=== PATIENT | female | born 1990 | race African-American/Black ===

== ENCOUNTER 2018-02-14 19:55 | Emergency (ER) | payer SELFPAY ==
[2018-02-14 19:55] VITALS: BP 141/95; PULSE 123; RESP 20; TEMP 37.8; O2SAT 92; BMI 47.5
--- NOTE | 2018-02-14 20:11 | ED.VISSUMM ---
- ER Visit Summary Date of Service: 02/14/18 Chief Complaint: Cough, shortness of breath History of Present Illness: The patient is a 27 F with history of asthma presents to the emergency department with cough and shortness of breath. Patient states she has been having symptoms for the past 3 days. She states she went to an outside hospital 2 days ago. She was diagnosed with a viral bronchitis. She states she was placed on 20 mg prednisone daily. She states she is not feel like she is getting any better. She has been using her breathing treatments with increased frequency with little relief. She does describe fevers, chills, myalgias. She has not had productive sputum, but feels like there is something stuck and just cannot get it up. She denies any chest pain. She denies orthopnea. The patient does have history of prior ARDS from influenza. She states she does not feel nearly as sick as she did at that time. Physical Examination: Vital signs reviewed General: Well-nourished, well-developed Head: Normocephalic, atraumatic Eyes: Pupils equal and reactive, extraocular muscles intact Neck, supple, no lymphadenopathy Heart: Regular rate and rhythm Respiratory: No distress, wheezing throughout all lung santiago Abdomen: Soft, nontender, nondistended, no peritoneal signs Back: Nontender Extremities: Nontender, no edema, no cords Skin: Normal color no rash Neuro: Alert and oriented, no focal or lateralizing deficits Test Results: [] Emergency Department Course and Treatment: The patient does have wheezing in all lung santiago. IV was established. She was given fluids, Toradol, and Solu-Medrol. With nebulized treatments, her aeration is improved. She had resolution of her tachypnea. She had no hypoxia. Her labs are unremarkable. Her chest x-ray does not show focal infiltrate. With the patient's persistent fever and productive sputum, I am going to cover her with azithromycin especially given underlying history of lung disease. I do feel that this patient is safe for outpatient therapy. She is comfortable with this plan of care. Her influenza is negative. She will be discharged home. Treatment Plan: [] Disposition: Discharge Impression:. Bronchitis with bronchospasm This note was generated with LLamas[employer] software. It may contain incorrect words, spelling, and punctuation that were not noted in review of the chart prior to signing ED Disposition - Plan for ED Patient: Chief Complaint: Shortness of Breath Instructions: ED Upper Resp Infec Abx Tx Prescriptions: Azithromycin [Zithromax] 250 mg PO DAILY #4 tab Benzonatate [Tessalon Perle] 200 mg PO TID PRN PRN #20 cap PRN Reason: Cough Referrals: Piotr Woodward MD [STAFF PHYSICIAN] -
[2018-02-14 20:13] VITALS: O2SAT 96
--- NOTE | 2018-02-14 20:17 | EKG12_ITS ---
Test Reason : SOB Blood Pressure : / mmHG Vent. Rate : 117 BPM Atrial Rate : 117 BPM P-R Int : 158 ms QRS Dur : 078 ms QT Int : 328 ms P-R-T Axes : 065 048 059 degrees QTc Int : 457 ms Sinus tachycardia Otherwise normal ECG Confirmed by LEIGH ESPINOSA, ERNESTO ([id number]), business editor MARYAN SCOTT ([id number]) on 02/18/2018 2:30:41 PM Referred By: RAMEZ Confirmed By:ERNESTO ABRAHAM MD
[2018-02-14 20:22] VITALS: PULSE 117; RESP 20
[2018-02-14] MEDS: Albuterol 2.5 MG/3 ML VIAL.NEB. INHALATION ×2 (20:22)
[2018-02-14] MEDS: Ipratropium/Albuterol Sulfate 3 ML AMPUL.NEB INHALATION (20:22)
[2018-02-14] MEDS: 0.9% Normal Saline 1,000 ML 999 ML IV (20:24)
[2018-02-14] MEDS: MethylPREDNISolone 125 MG/2 ML Vial IV (20:24)
[2018-02-14 20:31] LABS: Absolute Lymphocyte Count 1.59 X10^3/ul (0.83-4.51); Absolute Neutrophil Count 7.6 X10^3/uL (2.0-7.7); Basophil# 0.02 X10^3/uL; Basophil% 0.2 % (0-1); Eosinophil# 0.01 X10^3/uL; Eosinophils% 0.1 % (0-5); Hematocrit 42.2 % (37-47); Hemoglobin 14.1 g/dl (12.0-15.0); Lymphocyte # 1.59 X10^3/ul (4.0); Lymphocyte % 16.6 % (19-41); Mean Corp Hgb Conc 33.4 g/gl (32-36); Mean Corpuscular Hgb 30.9 pg (27.0-32.0); Mean Corpuscular Volume 92.3 fL (81-99); Mean Platelet Vol. 9.9 fl (6.2-12.0); Monocyte# 0.36 X10^3/uL; Monocyte% 3.8 % (0-10); Neutrophil # 7.57 X10^3/uL (2.7-7.7); Neutrophil % 79.2 % (47-70); Platelet Count 336 K/mm3 (150-450); RBC Distribution Width CV 13.6 % (11.6-14.6); RBC Distribution Width SD 45.3 fl (35.1-43.9); Red Blood Count 4.57 M/mm3 (4.2-5.4); White Blood Count 9.6 K/mm3 (4.4-11.0)
[2018-02-14 20:32] LABS: POSITIVE COUNT NO; POSITIVE DIFFERENTIAL NO; POSITIVE MORPHOLOGY NO
--- NOTE | 2018-02-14 20:35 | RAD_ITS ---
STUDY: X-RAY CHEST REASON FOR EXAM: Female, 27 years old. Shortness of breath, fever. TECHNIQUE: PA and lateral views of the chest. COMPARISON: 28 mar 2017 FINDINGS: The lungs are clear and expanded. There is no demonstrated pleural abnormality. Normal size heart. Normal mediastinum and ariadna. Normal visualized pulmonary arteries. Normal visualized aortic arch and descending thoracic aorta. Normal visualized thoracic spine. Normal visualized ribs, clavicles, and shoulders. There is no demonstrated abnormality of the visualized soft tissue structures of the upper abdomen. RAD/Chest PA and Lateral IMPRESSION: No evidence of acute cardiopulmonary process. Electronically Signed: Javon Bueno DO at 22:02 EDT , Service support ,
[2018-02-14 20:46] LABS: Anion Gap 8 (5-15); BUN 12 mg/dL (7-18); Calcium,Total 8.9 mg/dL (8.5-10.1); Chloride 106 mmol/L (98-107); Creatinine, Serum 0.92 mg/dL (0.55-1.02); EST Glomerular Filtration Rate 77 mL/min (>60); Est Glom Filt Rate - Afr Amer 93 mL/min (>60); Glucose 120 mg/dL (74-106); Potassium 3.9 mmol/L (3.5-5.1); Sodium Level 141 mmol/L (136-145)
[2018-02-14 22:01] VITALS: BP 134/105; PULSE 114; PULSE 115; RESP 21; O2SAT 93
[2018-02-14] MEDS: Azithromycin 250 MG Tablet 500 MG PO (22:03)
== END 2018-02-14 22:15 | disposition home or self-care (01) ==
PROVIDERS: Emergency Provider Emergency Medicine
DX: J40 Bronchitis, not specified as acute or chronic (principal); J98.01 Acute bronchospasm; J45.909 Unspecified asthma, uncomplicated; E66.9 Obesity, unspecified; Z87.09 Personal history of other diseases of the respiratory system; Z72.0 Tobacco use
CPT/HCPCS: 71046; 80048; 85025; 87804; 93005; 94640; 96361; 96374; 99285; J7030; A4216

== ENCOUNTER 2018-03-13 16:48 | Emergency (ER) | payer SELFPAY ==
[2018-03-13 16:49] VITALS: BP 150/94; PULSE 115; RESP 22; TEMP 38.8; O2SAT 97; BMI 49.0
[2018-03-13 16:51] VITALS: O2SAT 97
--- NOTE | 2018-03-13 17:02 | RAD_ITS ---
XR Chest 2 Views INDICATION: fever, cough COMPARISON: None FINDINGS: Heart size and pulmonary vascularity are within normal limits. The lungs are clear without evidence of airspace consolidation or pleural effusion. The osseous structures are grossly unremarkable. RAD/Chest PA and Lateral IMPRESSION: No radiographic evidence of acute intrathoracic disease. at 1737 Reported and signed by: Elena Underwood MD Electronically Signed: Elena Underwood MD at 17:35 EDT Tel , Service support ,
--- NOTE | 2018-03-13 17:15 | ED.VISSUMM ---
- ER Visit Summary Date of Service: 03/13/18 Chief Complaint: Cough, fever History of Present Illness: The patient is a 27 F who has 3 days of cough, fever. It started as nasal congestion and then she had shortness of breath with a cough. She states that Tylenol helps with her fevers but the fever comes back after a couple of hours. She has been using her nebulizer at home but it does not help. She does have a history of asthma. No sick contacts at home. Physical Examination: Vital signs reviewed. HEENT exam unremarkable. Heart is regular rate and rhythm without murmurs. Lungs have diffuse rhonchorous breath sounds bilaterally. Abdomen is soft and nontender. Extremities reveal no edema. Skin exam normal. Neurologic exam normal. Test Results: Chest x-ray reveals no acute findings Emergency Department Course and Treatment: Patient was given a DuoNeb treatment and feels better. Due to her fever I will send her home with a azithromycin and prednisone. She will continue her aerosols will follow up with her PCP Treatment Plan: [] Disposition: Discharge Impression: URI This note was generated with [employer] dictation software. It may contain incorrect words, spelling, and punctuation that were not noted in review of the chart prior to signing ED Disposition - Plan for ED Patient: Chief Complaint: Cough Referrals: Care Physician,No Primary [Primary Care Provider] -
[2018-03-13 17:28] VITALS: PULSE 119; RESP 20
[2018-03-13] MEDS: Ipratropium/Albuterol Sulfate 3 ML AMPUL.NEB INHALATION (17:28)
--- NOTE | 2018-03-13 17:46 | ED.DEP ---
ED Disposition - Plan for ED Patient: Disposition: Home or Assisted Living Chief Complaint: Cough Instructions: ED Upper Resp Infec Abx Tx Prescriptions: Azithromycin [Zithromax] 250 mg PO DAILY #4 tab Prednisone [Deltasone] 40 mg PO DAILY #8 tab Referrals: Care Physician,No Primary [Primary Care Provider] -
[2018-03-13] MEDS: predniSONE 20 MG Tablet 40 MG PO (17:51)
[2018-03-13] MEDS: Azithromycin 250 MG Tablet 500 MG PO (17:51)
[2018-03-13 17:53] VITALS: BP 142/87; PULSE 108; RESP 20; O2SAT 100
== END 2018-03-13 17:54 | disposition home or self-care (01) ==
PROVIDERS: Emergency Provider Emergency Medicine
DX: J06.9 Acute upper respiratory infection, unspecified (principal); J45.909 Unspecified asthma, uncomplicated; Z72.0 Tobacco use
CPT/HCPCS: 71046; 94640; 99283

== ENCOUNTER 2018-03-14 20:31 | Emergency (ER) | payer SELFPAY ==
[2018-03-14 20:33] VITALS: BP 125/77; PULSE 94; RESP 20; TEMP 36.9; O2SAT 91; BMI 53.4
[2018-03-14 20:57] VITALS: O2SAT 90
--- NOTE | 2018-03-14 21:02 | ED.DCSUM_ITS ---
- ER Visit Summary Date of Service: 03/14/18 Chief Complaint: I cannot breathe History of Present Illness: The patient is a 27 F with history of asthma and respiratory failure secondary to age 1 and 1 who returns because of shortness of breath, nonproductive cough and no improvement since yesterday. She is able to nebulized albuterol at home. She states there is no improvement. She was prescribed azithromycin and prednisone. She denies history of PE DVT. Denies leg pain, swelling discoloration. She does report change in voice. She does report congestion. Her cough is nonproductive. She is a smoker. Physical Examination: Vital signs are acceptable. Her pulse ox is 91%. Her pulse ox with activity is 92%. BMI is 54. HEENT exam is remarkable for nasal congestion. TMs are normal. Posterior pharynx without erythema or exudate. Trachea midline with no stridor. Lungs are clear to auscultation with good move air bilaterally. Heart is regular without murmur, gallop or rub. Abdomen is soft nontender. She has no dermatologic lesions noted. Test Results: None are indicated Emergency Department Course and Treatment: Amatory pulse ox 90%. Patient's been informed since she is a smoker she may cough up to 4 weeks. She was told she has an upper respiratory infection and may be ill for an additional 10-14 days. Treatment Plan: Continue using albuterol, and to take prednisone and azithromycin as prescribed Disposition: Discharged to home Impression: 1. History of asthma 2. Recent diagnosis upper respiratory infection This note was generated with ShareNotes.[employer] dictation software. It may contain incorrect words, spelling, and punctuation that were not noted in review of the chart prior to signing ED Disposition - Plan for ED Patient: Disposition: Home or Assisted Living Chief Complaint: Shortness of Breath Instructions: ED Upper Resp Infec Abx Tx Referrals: Care Physician,No Primary [Primary Care Provider] - Doctor,Your [STAFF PHYSICIAN] - Additional Instructions: Because you are smoker you may have a cough up to 4 weeks. You may be ill for an additional 10-14 days.
[2018-03-14 21:06] VITALS: O2SAT 92
[2018-03-14 21:08] VITALS: BP 155/95; PULSE 94; RESP 18; O2SAT 94
--- NOTE | 2018-03-15 14:19 | CM.ED ---
ED CALLBACK: Follow-up phone call placed to patient. Patient's mother, Chloe, answered the phone and states she's at the grocery and not near [facility]. Chloe states that the patient feels about the same as yesterday. I inquired as to whether the patient has a PCP. Chloe states her daughter just moved back to [place] and does not have active SLOANE or insurance at this time and this is why she has no PCP. I recommended that the patient see if she qualifies for Medicaid now, as she has in the past. Chloe states she will tell Polly to call me back.
== END 2018-03-14 21:14 | disposition home or self-care (01) ==
PROVIDERS: Emergency Provider Emergency Medicine
DX: J45.909 Unspecified asthma, uncomplicated (principal); J06.9 Acute upper respiratory infection, unspecified; Z87.09 Personal history of other diseases of the respiratory system; F17.200 Nicotine dependence, unspecified, uncomplicated
CPT/HCPCS: 99282

== ENCOUNTER → 2018-05-01 17:50 | Outpatient (CLI) | payer MEDICAID, SELFPAY ==
[2018-05-09 16:17] LABS: HPV Reflexed? NOT INDICATED
== END ==
PROVIDERS: Visit Provider Obstetrics & Gynecology
DX: Z12.4 Encounter for screening for malignant neoplasm of cervix (principal); Z12.72 Encounter for screening for malignant neoplasm of vagina
CPT/HCPCS: 88175; G0145

== ENCOUNTER 2018-05-15 11:01 | Emergency (ER) | payer MEDICAID, SELFPAY ==
[2018-05-15 11:02] VITALS: BP 132/66; PULSE 93; RESP 16; TEMP 35.9; O2SAT 98; BMI 52.1
--- NOTE | 2018-05-15 11:15 | ED.VISSUMM ---
- ER Visit Summary Date of Service: 05/15/18 Chief Complaint: [Rash] History of Present Illness: The patient is a 27 F [presents the emergency department the rash started a week ago. Patient denies any fever. Patient thinks she was exposed to poison ankush may be a month ago but not since. She denies any new soaps, detergents, or other direct contact to her skin. Patient states the rash is pruritic. Patient used a anti-itch cream to it one time but she thought that may have made it worse so she stopped using it.] Physical Examination: [HEENT-PERRLA, EOMI. Cranial nerves II through XII grossly intact. TMs clear. Mucous membranes moist. No adenopathy. Cardiovascular-regular rate and rhythm without murmur or ectopy Lungs-clear to auscultation, chest wall stable without crepitus or subcu emphysema Abdomen-normoactive bowel sounds, soft, nontender, no rebound or rigidity, no peritoneal signs. Extremities-intact ?4, normal range of motion, normal pulses, atraumatic]. Left knee-patient has a erythematous slightly raised rash about the left knee and distal anterior thigh. There are some hair follicles that are slightly raised and erythematous raising the possibility of early cellulitis or folliculitis. There are some linearity to the lesions raising possibility for a rhus dermatitis or contact dermatitis Test Results: [None indicated] Emergency Department Course and Treatment: [Patient was started on Keflex and prednisone] Treatment Plan: [Treat with Keflex and prednisone] Disposition: [Discharged home in stable condition] Impression: [Contact dermatitis Cellulitis] This note was generated with Luminescent dictation software. It may contain incorrect words, spelling, and punctuation that were not noted in review of the chart prior to signing ED Disposition - Plan for ED Patient: Chief Complaint: Rash Referrals: Care Physician,No Primary [Primary Care Provider] -
--- NOTE | 2018-05-15 11:17 | ED.DEP ---
ED Disposition - Plan for ED Patient: Chief Complaint: Rash Instructions: Discharge Instructions for Cellulitis, ED Dermatitis Contact Prescriptions: Cephalexin [Keflex] 500 mg PO Q6 #40 cap Prednisone [Deltasone] 20 mg PO BID #10 tab Referrals: Care Physician,No Primary [Primary Care Provider] - Piotr Woodward MD [STAFF PHYSICIAN] - 5-7 Days
[2018-05-15] MEDS: predniSONE 20 MG Tablet 40 MG PO (11:22)
[2018-05-15] MEDS: Cephalexin 250 MG Capsule 500 MG PO (11:22)
[2018-05-15 11:24] VITALS: BP 128/76; PULSE 82; RESP 16; O2SAT 98
== END 2018-05-15 12:28 | disposition home or self-care (01) ==
LOC: ED 12:21
PROVIDERS: Emergency Provider Emergency Medicine
DX: L25.9 Unspecified contact dermatitis, unspecified cause (principal); L03.116 Cellulitis of left lower limb; B96.89 Other specified bacterial agents as the cause of diseases classified elsewhere; Z72.0 Tobacco use
CPT/HCPCS: 99283

== ENCOUNTER 2018-07-24 23:51 | Emergency (ER) | payer MEDICAID, SELFPAY ==
[2018-07-24 23:52] VITALS: BP 108/75; PULSE 99; RESP 17; TEMP 36.6; O2SAT 99; BMI 56.3
--- NOTE | 2018-07-25 00:10 | ED.VISSUMM ---
- ER Visit Summary Date of Service: 07/25/18 Chief Complaint: Suprapubic pain History of Present Illness: The patient is a 27 F presents to the emergency department suprapubic pain. The patient is currently undergoing fertility treatments. She is on Clomid and progesterone therapy. She states that tonight, at about 1130, she had sudden onset fullness in her suprapubic area. She felt as if she had to urinate, but could not. She describes some pain in her lower quadrants. She denies any fevers or chills. She denies any nausea or vomiting. She states she did take a test today which was negative. The patient does have a history of prior ovarian cyst, but is never had rupture. She has had prior laparoscopic surgery for endometriosis. She follows with Dr. Sanchez. Physical Examination: Vital signs reviewed General: Well-nourished, well-developed Head: Normocephalic, atraumatic Eyes: Pupils equal and reactive, extraocular muscles intact Neck, supple, no lymphadenopathy Heart: Regular rate and rhythm Respiratory: No distress, clear bilaterally Abdomen: Soft, nontender, nondistended, no peritoneal signs Back: Nontender Extremities: Nontender, no edema, no cords Skin: Normal color no rash Neuro: Alert and oriented, no focal or lateralizing deficits Test Results: [] Emergency Department Course and Treatment: The patient presents with sudden onset suprapubic pain. Her exam is relatively benign. She has no rebound or guarding. She does state she has had some mild pain with urination feels like she cannot empty. Her urine does show leukocytes and epithelial cells, but no significant bacteria. I do feel that she may have the start of urinary tract infection. Her serum was negative. Without any intervention, her pain had totally resolved. I do not suspect torsion. I do not suspect other dangerous process. The patient is resting comfortably. I am going to treat her with Macrobid. At this time, I feel that she is safe for outpatient therapy. Treatment Plan: [] Disposition: Discharge Impression: 1. Suprapubic pain This note was generated with [employer] dictation software. It may contain incorrect words, spelling, and punctuation that were not noted in review of the chart prior to signing ED Disposition - Plan for ED Patient: Chief Complaint: Abd Pain Instructions: ED Pelvic Pain [facility]O Prescriptions: Nitrofurantoin Macrocrystals [Macrobid] 100 mg PO Q12 #10 cap Referrals: Care Physician,No Primary [NON-STAFF] -
[2018-07-25] MEDS: 0.9% Normal Saline 1,000 ML 1000 ML IV (00:21)
[2018-07-25 00:24] LABS: Bacteria 0 SEEN /hpf (None Seen); Mucous, Urine 0 SEEN /hpf (<or=2+); Red Blood Cells-Urine 0 SEEN /hpf (0-5); White Blood Cells 0 SEEN /hpf (0-5)
[2018-07-25 00:25] LABS: Color, Urine Yellow (Yellow); Glucose, Dipstick Normal (Normal); Ketone-Dipstick Negative (Negative); Leukocyte Esterase-Dipstick 25 /ul (Negative); Nitrite-Dipstick Negative (Negative); Occult Blood-Urine Negative /ul (Negative); Protein-Dipstick Negative (Negative); Specific Gravity, Urine 1.025 (1.002-1.030); Urine Bilirubin Dipstick Negative (Negative); Urine Clarity Sl. Cloudy (Clear); Urine Urobilinogen Normal (Normal)
[2018-07-25 00:29] LABS: Absolute Lymphocyte Count 4.11 X10^3/ul (0.83-4.51); Basophil# 0.05 X10^3/uL; Basophil% 0.5 % (0-1); Eosinophil# 0.55 X10^3/uL; Eosinophils% 5.8 % (0-5); Hematocrit 38.4 % (37-47); Hemoglobin 12.7 g/dl (12.0-15.0); Lymphocyte # 4.11 X10^3/ul (4.0); Lymphocyte % 43.3 % (19-41); Mean Corp Hgb Conc 33.1 g/gl (32-36); Mean Corpuscular Volume 90.6 fL (81-99); Mean Platelet Vol. 9.6 fl (6.2-12.0); Monocyte# 0.75 X10^3/uL; Monocyte% 7.9 % (0-10); Neutrophil # 4.01 X10^3/uL (2.7-7.7); Neutrophil % 42.3 % (47-70); Platelet Count 377 K/mm3 (150-450); RBC Distribution Width CV 12.9 % (11.6-14.6); RBC Distribution Width SD 41.9 fl (35.1-43.9); Red Blood Count 4.24 M/mm3 (4.2-5.4); White Blood Count 9.5 K/mm3 (4.4-11.0)
[2018-07-25 00:32] LABS: Differential Indicated SCAN CRITERIA MET; POSITIVE COUNT NO; POSITIVE DIFFERENTIAL NO; POSITIVE MORPHOLOGY YES
[2018-07-25 00:33] LABS: Squamous Epithelial Cells - UA > 100 SEEN /hpf (5-10)
[2018-07-25 00:46] LABS: Anion Gap 7 (5-15); BUN 15 mg/dL (7-18); BUN/Creat Ratio 16.8 RATIO (10-20); Calcium,Total 8.7 mg/dL (8.5-10.1); Chloride 107 mmol/L (98-107); Creatinine, Serum 0.89 mg/dL (0.55-1.02); EST Glomerular Filtration Rate 79 mL/min (>60); Est Glom Filt Rate - Afr Amer 96 mL/min (>60); Glucose 111 mg/dL (74-106); Sodium Level 139 mmol/L (136-145)
[2018-07-25 01:01] LABS: Pregnancy, Serum, hCG Quali. NEGATIVE Negative (0-9 Nonpreg)
[2018-07-25] MEDS: Nitrofurantoin Macrocrystals 100 MG Capsule PO (01:35)
[2018-07-25 01:37] VITALS: BP 135/77; PULSE 85; RESP 16; O2SAT 97
== END 2018-07-25 01:39 | disposition home or self-care (01) ==
PROVIDERS: Emergency Provider Emergency Medicine; Family Provider Internal Medicine; PCP Internal Medicine
DX: R10.30 Lower abdominal pain, unspecified (principal); R30.0 Dysuria; E66.9 Obesity, unspecified
CPT/HCPCS: 80048; 81001; 84703; 85025; 96360; 99284; J7030; A4216

== ENCOUNTER → 2018-08-21 16:59 | Outpatient (CLI) | payer MEDICAID, SELFPAY ==
[2018-08-21 19:00] LABS: Progesterone Level 0.26 ng/mL (See Comment)
== END ==
PROVIDERS: Visit Provider Obstetrics & Gynecology
DX: N92.6 Irregular menstruation, unspecified (principal)
CPT/HCPCS: 36415; 84144

== ENCOUNTER 2018-09-23 17:54 | Emergency (ER) | payer MEDICAID, SELFPAY ==
[2018-09-23 17:55] VITALS: BP 128/79; PULSE 84; RESP 16; TEMP 36.2; O2SAT 95; BMI 55.0
[2018-09-23 18:11] VITALS: O2SAT 95
--- NOTE | 2018-09-23 18:16 | ED.DCSUM_ITS ---
- ER Visit Summary Date of Service: 09/23/18 Chief Complaint: Cough, dyspnea History of Present Illness: The patient is a 28 F 2-day history increased upper respiratory illness. They started with sinus congestion, using saline rinse with improvement. Today cough wheeze. History of asthma. Does have inhalers at home. Saw [facility] stat care started on prednisone. States feels symptoms worsening. He tried inhalers still slight wheeze. No fevers. No chest pains. 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 Quit smoking currently on Chantix. Physical Examination: General: Alert and oriented ?3, no acute distress HEENT: Normocephalic, atraumatic. Moist mucosa membranes Neck: supple, nontender. Cardiovascular: Regular rate and rhythm, no murmurs Respiratory: No distress, mild expiratory wheeze bilateral lower, no rales Abdomen: Soft, nontender, nondistended Extremities: Nontender, no edema, pulses intact ?4 Neuro: no focal neurological deficits. Test Results: [] Emergency Department Course and Treatment: Expiratory wheezing, status post DuoNeb. Vitals stable. Reevaluation improved wheezing and symptoms. She does have a nebulizer at home, she requests medications were her nebulizer she does have a rescue inhaler. Discussed finishing her steroid dose started by stat care. Discussed viral syndrome with asthma exacerbation. Signs and symptoms d iscussed to return. Treatment Plan: [] Disposition: Discharge Impression: 1. Asthma exacerbation 2. Upper respiratory infection This note was generated with [employer] dictation software. It may contain incorrect words, spelling, and punctuation that were not noted in review of the chart prior to signing ED Disposition - Plan for ED Patient: Disposition: Home or Assisted Living Chief Complaint: Cough Diagnosis: Asthma exacerbation, Upper respiratory infection Instructions: ED Upper Resp Infec No Abx Tx, Understanding Asthma Triggers Prescriptions: Albuterol Aerosols [Ventolin Aerosols] 2.5 mg INHALATION Q4H PRN #25 vial Referrals: Piotr Woodward MD [Primary Care Provider] - 3-5 Days Additional Instructions: Finish your steroids written by stat care.
[2018-09-23 18:20] VITALS: PULSE 88; RESP 16
[2018-09-23] MEDS: Ipratropium/Albuterol Sulfate 3 ML AMPUL.NEB INHALATION (18:21)
--- NOTE | 2018-09-23 18:59 | ED.RN ---
DISCHARGE INSTRUCTIONS GIVEN TO AND REVIEWED WITH PATIENT, PATIENT DENIES QUESTIONS OR CONCERNS AND VOICES UNDERSTANDING OF DISCHARGE INSTRUCTIONS. PT AMBULATES OUT OF ROOM WITHOUT DIFFICULTY.
== END 2018-09-23 19:00 | disposition home or self-care (01) ==
PROVIDERS: Emergency Provider Emergency Medicine; Family Provider Internal Medicine; PCP Internal Medicine
DX: J45.901 Unspecified asthma with (acute) exacerbation (principal); J06.9 Acute upper respiratory infection, unspecified; Z87.891 Personal history of nicotine dependence
CPT/HCPCS: 94640; 99282

== ENCOUNTER 2019-10-20 18:41 | Emergency (ER) | payer MEDICAID, SELFPAY ==
[2019-10-20 18:42] VITALS: BP 110/80; PULSE 85; RESP 20; TEMP 36.2; O2SAT 94; BMI 51.6
--- NOTE | 2019-10-20 19:35 | EKG12_ITS ---
Test Reason : SOB Blood Pressure : / mmHG Vent. Rate : 079 BPM Atrial Rate : 079 BPM P-R Int : 152 ms QRS Dur : 076 ms QT Int : 362 ms P-R-T Axes : 062 029 042 degrees QTc Int : 415 ms Normal sinus rhythm Normal ECG Confirmed by LEIGH ESPINOSA, ERNESTO ([id number]), order editor MARYAN SCOTT ([id number]) on 10/22/2019 11:48:09 AM Referred By: KIEL Confirmed By:ERNESTO ABRAHAM MD
[2019-10-20 19:57] VITALS: PULSE 84; RESP 16; O2SAT 96
[2019-10-20] MEDS: Albuterol 2.5 MG/3 ML VIAL.NEB. INHALATION ×3 (19:57→21:38)
[2019-10-20] MEDS: Ipratropium/Albuterol Sulfate 3 ML AMPUL.NEB INHALATION (19:57)
[2019-10-20] MEDS: MethylPREDNISolone 125 MG/2 ML Vial IV (19:57)
[2019-10-20] MEDS: 0.9% Normal Saline 1,000 ML 999 ML IV (20:02)
--- NOTE | 2019-10-20 20:08 | RAD_ITS ---
STUDY: X-RAY CHEST REASON FOR EXAM: Female, 29 years old. Short of breath TECHNIQUE: PA and lateral COMPARISON: March 13, 2018 FINDINGS: The lungs are clear and expanded. There is no demonstrated pleural abnormality. Normal size heart. Normal mediastinum and ariadna. Normal visualized pulmonary arteries. Normal visualized aortic arch and descending thoracic aorta. Normal visualized thoracic spine. Normal visualized ribs, clavicles, and shoulders. There is no demonstrated abnormality of the visualized soft tissue structures of the upper abdomen. RAD/Chest PA and Lateral IMPRESSION: Normal x-ray examination of the chest. Electronically Signed: Moi Staples MD at 20:25 EST , Service support ,
[2019-10-20 20:40] LABS: Internal QC Validated? YES +Cl - CLEAR BKGD; Pregnancy, Serum, hCG Quali. NEGATIVE Negative
[2019-10-20 21:38] VITALS: PULSE 102; RESP 16
[2019-10-20 22:06] VITALS: PULSE 104; RESP 16; O2SAT 96
--- NOTE | 2019-10-20 22:10 | ED.VISSUMM ---
- ER Visit Summary Date of Service: 10/20/19 Chief Complaint: Shortness of breath History of Present Illness: The patient is a [address] Woodward. She has a history of asthma. She reports she has shortness of breath began yesterday. Severe at worst mild currently. Is worsened by exertion. Is relieved by rest and albuterol. Reports that she has a cough is productive of white sputum. She denies any blood. No fever chills. No personal family history history of DVT. No recent travel. No ankle swelling or calf pain. She reports this is similar to her asthma exacerbations, but this is worse than usual. Physical Examination: Vitals: Stable. Afebrile. General: Well-nourished and well-developed. Head: Normocephalic atraumatic. Neck: Supple, no lymphadenopathy. No JVD. Nontender. Cardiovascular: Regular rate and rhythm. No murmurs. Respiratory: No respiratory distress. Moderate wheezing bilaterally with decreased air movement Abdominal: Soft, nontender, nondistended, normal bowel sounds. No guarding, rebound, or peritoneal signs. Back: Nontender. Extremities: Nontender, no edema. Skin: Normal color, no rash. Neurologic: Alert and oriented ?3. Cranial nerves II through XII are intact. Normal strength and sensation. Psych: Normal affect. Test Results: Chest x-ray is normal. EKG is sinus at 79 with no acute changes. Patency test is negative. Emergency Department Course and Treatment: Patient was given albuterol Atrovent aerosols. She was given Solu-Medrol IV. She was given prednisone p.o. She is resting more comfortably. She still has slight wheezing, but reports that her symptoms are much improved. Treatment Plan: Patient be discharged with prednisone instructed to continue to use her nebulizer and MDI. Follow with her primary care physician 1 to 2 days if not improving. Return to the emergency department for any worsening symptoms. Disposition: To home in improved and stable condition. Impression: 1. Asthma exacerbation. This note was generated with [employer] software. It may contain incorrect words, spelling, and punctuation that were not noted in review of the chart prior to signing ED Disposition - Plan for ED Patient: Disposition: Home or Assisted Living Instructions: ASTHMA, Acute (Adult) Prescriptions: Prednisone [Deltasone] 60 mg PO DAILY #15 tab Prescription Printed Referrals: Piotr Woodward MD [Primary Care Provider] - 1-2 Days if not improving
[2019-10-20 22:16] VITALS: O2SAT 96
[2019-10-20] MEDS: predniSONE 20 MG Tablet 60 MG PO (22:16)
== END 2019-10-20 22:19 | disposition home or self-care (01) ==
PROVIDERS: Emergency Provider Emergency Medicine; Family Provider Internal Medicine; PCP Internal Medicine
DX: J45.901 Unspecified asthma with (acute) exacerbation (principal); Z87.891 Personal history of nicotine dependence
CPT/HCPCS: 71046; 84703; 87804; 93005; 94640; 96361; 96374; 99251; 99285; J7030; A4216; G0463

== ENCOUNTER 2020-08-21 22:18 | Emergency (ER) | payer MEDICAID, SELFPAY ==
[2020-05-17 12:39] VITALS: BMI 51.6
[2020-08-21 22:18] VITALS: BP 134/82; PULSE 86; RESP 18; TEMP 36.2; O2SAT 95; BMI 54.6
[2020-08-21 22:23] VITALS: BP 134/82; PULSE 86; RESP 18; TEMP 36.2; O2SAT 95
--- NOTE | 2020-08-21 23:03 | ED.VIS.GEN ---
History of Present Illness Chief Complaint: Shortness of Breath Informant: Patient Narrative: 30-year-old female with history of asthma presents today with shortness of breath and a cough. Patient states that she was seen yesterday at urgent care and diagnosed with sinusitis and otitis media on the left. He is treated with doxycycline because she is penicillin allergic. Patient states that her shortness of breath feels worse. Her oxygen has been normal. She did not have shortness of breath yesterday. She states that 4 times a year she gets this. She states that usually her oxygen looks fine however she still feels short of breath. She does not have any chest pain or palpitations. Patient is a smoker. She denies fever, nausea vomiting diarrhea, myalgias but she does have loss of taste and smell. Past Medical History - Allergies and Home Meds Allergies/Adverse Reactions: Allergies Penicillins Allergy (Verified 07/24/18 23:51) Hives AVACADO Adverse Reaction (Uncoded 07/24/18 23:51) Vomiting GUACAMOLE Adverse Reaction (Uncoded 07/24/18 23:51) Vomiting Primary Care Physician: Piotr Woodward MD [Primary Care Provider] - Prior records reviewed: Yes Past Medical History: - - Asthma Surgical History: no surgical history, noncontributory Lives: Alone Smoking Status: Former smoker Alcohol: None Drugs: None Review of Systems General: Denies: Chills, Fever Eyes: Denies: Visual changes - bilaterally, Diplopia ENT: Reports: Left ear pain, Rhinorrhea, - - Loss of taste and smell Cardiovascular: Denies: Chest pain, Palpitations Respiratory: Reports: Dyspnea, Cough Gastrointestinal: Denies: Abdominal pain, Nausea, Vomiting Genitourinary: Denies: Dysuria, Hematuria Musculoskeletal: Denies: Myalgias, Arthralgias Skin: Denies: Rash, Abscess Neurological: Denies: Headache, Weakness Physical Exam Vital Signs/Narrative: Vital Signs Temp Pulse Resp BP Pulse Ox 08/21/20 22:23 97.1 F L 86 18 134/82 H 95 08/21/20 22:18 97.1 F L 86 18 134/82 H 95 Inital Vital Signs reviewed: Yes General: Obese, No Acute Distress Head: Normocephalic, Atraumatic Eyes: Perrl, EOMI ENT: Nasal congestion, - - Left TM is erythematous with air-fluid levels. Right TM is within normal limits. Both external auditory canals are normal. Cardiovascular: Regular rate, Tachycardia Respiratory: No distress, Wheezing. Negative for: Retractions, Chest tenderness Extremities: Nontender, No edema Skin: Normal color, No rash. Negative for: Cyanosis Neurological: Alert, Oriented x3 Psychological: Normal affect, Normal Mood Diagnostic/Tx/Re-eval - Medical Decision Making Patient presents with left ear pain and nasal congestion as well as wheezing. She is already been treated with doxycycline for her otitis media/sinusitis. On examination her vital signs are stable and she is afebrile. She is not hypoxic. Her lungs are slightly wheezy. She was given breathing treatments and prednisone in the ED. She will be given a burst of prednisone for home as well. She has home nebulizer solution as well as an albuterol inhaler however she states her home nebulizer is broken. I did provide her a prescription for new home nebulizer. We did discuss the possibility of exposure to COVID?19 however she states that she does not want to be tested. I did recommend that she still quarantine. I recommend smoking cessation. Patient given strict return precautions. She is stable for discharge at this time. Impression: 1. Left otitis media 2. Asthma exacerbation 3. URI likely viral ED Disposition - Plan for ED Patient: Instructions: ED Upper Resp Infec No Abx Tx, Otitis Media (Middle-Ear Infection) in Adults, Understanding Asthma Referrals: Piotr Woodward MD [Primary Care Provider] -
[2020-08-21] MEDS: predniSONE 20 MG Tablet 60 MG PO (23:16)
[2020-08-21] MEDS: Albuterol 2.5 MG/3 ML VIAL.NEB. INHALATION (23:27)
[2020-08-21] MEDS: Ipratropium/Albuterol Sulfate 3 ML AMPUL.NEB INHALATION (23:27)
[2020-08-21 23:30] VITALS: PULSE 85; RESP 18
[2020-08-22 01:03] VITALS: RESP 16; O2SAT 96
== END 2020-08-22 01:04 | disposition home or self-care (01) ==
PROVIDERS: Emergency Provider Student in an Organized Health Care Education/Training Program; PCP Internal Medicine
DX: H66.92 Otitis media, unspecified, left ear (principal); J45.901 Unspecified asthma with (acute) exacerbation; J06.9 Acute upper respiratory infection, unspecified; Z87.891 Personal history of nicotine dependence
CPT/HCPCS: 94640; 99283

== ENCOUNTER 2021-11-08 07:29 | Emergency (ER) | payer MEDICAID, SELFPAY ==
[2021-11-08 07:30] VITALS: BP 139/88; PULSE 103; RESP 16; TEMP 36.6; O2SAT 96; BMI 56.5
[2021-11-08 07:32] VITALS: BP 139/88; PULSE 103; RESP 16; TEMP 36.6; O2SAT 96
[2021-11-08 07:42] VITALS: O2SAT 96
--- NOTE | 2021-11-08 07:46 | ED.VIS.DYS ---
HPI History of Present Illness Chief Complaint: Shortness of Breath Informant: patient Narrative Narrative: 31-year-old female presenting to the emergency room with dyspnea. Patient notes she has a history of asthma. She developed a sinus infection approximately 1 week ago and notes that yesterday she developed shortness of breath. She notes cough. She used to be on Advair but has not seen her doctor recently so she only has her albuterol inhaler of which only has 3 puffs left on it. She notes no fever. [facility] Medical History Asthma Home Medications albuterol sulfate [Ventolin HFA] 1 - 2 puff INHALATION Q4H PRN PRN #1 inhaler 03/28/17 [Rx Last Taken Unknown] prednisone 60 mg PO DAILY #15 tab 10/20/19 [Rx Last Taken Unknown] albuterol sulfate [Ventolin HFA] 2 puff INHALATION Q4H PRN PRN #1 inhaler 11/08/21 [Rx Last Taken Unknown] prednisone 60 mg PO DAILY #12 tablet 11/08/21 [Rx Last Taken Unknown] Allergy/AdvReac Type Severity Reaction Status Date / Time Penicillins Allergy Hives Verified 11/08/21 07:32 [place]AC[place]O AdvReac Vomiting Uncoded 11/08/21 07:32 [place] AdvReac Vomiting Uncoded 11/08/21 07:32 Surgical History no surgical history Social History (Updated 11/08/21 @ 07:[address] Emeka King DO) current gender identity: female Smoking Status: Current every day smoker tobacco type: cigarettes ROS ROS ED Constitutional Constitutional ED: Denies chills or weight loss Eyes Eyes: Denies change in vision or diplopia ENT ENT ED: Reports rhinorrhea; Denies ear pain or sore throat Cardiovascular Cardiovascular: Denies chest pain, orthopnea, palpitations or racing heartbeat Respiratory/Chest Respiratory/Chest: Reports cough, dyspnea and dyspnea on exertion; Denies orthopnea Gastrointestinal Gastrointestinal: Denies abdominal pain, diarrhea, nausea or vomiting Genitourinary Genitourinary ED: Denies dysuria, hematuria or urinary frequency Musculoskeletal Musculoskeletal: Denies arthralgias or myalgias Integumentary Denies abscess or rash Neurologic Neurologic: Denies headache(s) or weakness Psychiatric Psychiatric: Denies anxiety, depression, suicidal ideation or suicidal thoughts Endocrine Endocrinology: Denies polydipsia, polyphagia or polyuria Allergic/Immunologic Allergic/Immunologic ED: Denies mouth swelling, tongue swelling or urticaria EXAM Physical Exam Const Vital Signs: 11/08/21 07:30 11/08/21 07:32 11/08/21 07:42 Temperature 97.9 F 97.9 F Temperature Source Temporal Temporal Pulse Rate 103 H 103 H Respiratory Rate 16 16 Respiratory Effort Short of Breath Labored Respiratory Pattern Blood Pressure 139/88 H 139/88 H Blood Pressure Mean 105 105 Pulse Ox 96 96 Oxygen Delivery Method Room Air Room Air Room Air 11/08/21 07:57 Temperature Temperature Source Pulse Rate 91 Respiratory Rate 15 Respiratory Effort Respiratory Pattern Normal Blood Pressure Blood Pressure Mean Pulse Ox Oxygen Delivery Method Positive well nourished and well developed General Appearance ED: well developed HEENT Reports normocephalic, head/scalp atraumatic, TM's clear and moist mucous membranes atraumatic Tympanic Membrane ED: Yes TM's clear Eyes PERRL and EOMs intact bilaterally Neck no lymphadenopathy, supple and no JVD Resp normal respiratory effort Auscultation: wheezes expiratory wheezes Cardio regular rate, regular rhythm and no murmurs GI normal to inspection, nondistended, normoactive bowel sounds and non-tender Palpation: soft Back/Spine no CVA tenderness and normal ROM Extremity normal to inspection General Extremety ED: Negative for edema General Extremity: Negative for edema Neuro oriented x3 and CN's II-XII intact bilaterally Sensorium / Orientation: alert Motor Exam: strength 5/5 throughout Psych mental status grossly normal Mood & Affect: Negative for depressed or tearful Skin no rashes or lesions noted and no wounds MDM MDM MDM Narrative Medical decision making narrative: Patient received breathing treatments and prednisone. Repeat examination finds her to be feeling significantly better. On lung auscultation she has better air movement still with some expiratory wheezes. Patient will be started with prednisone and new albuterol MDI. She is to follow-up with her primary care doctor to get back on her daily maintenance therapy and discussion of a new aerosol machine which she says hers is quite old and not working. Discharge Plan Triage Chief Complaint: Shortness of Breath ED Provider: Emeka King Dx/Rx/DC Orders Clinical Impression: Acute asthma exacerbation Instructions: ED Asthma, Acute (Adult) Prescriptions: New prednisone 20 MG tablet 60 mg PO DAILY Qty: 12 RF: 0 albuterol sulfate [Ventolin HFA] 1 INHALER inhaler 2 puff inhalation Q4H PRN PRN (Reason: Wheezing) Qty: 1 RF: 0 No Action albuterol sulfate [Ventolin HFA] 1 INHALER inhaler 1 - 2 puff inhalation Q4H PRN PRN (Reason: Wheezing) Qty: 1 RF: 0 prednisone 20 MG tablet 60 mg PO DAILY Qty: 15 RF: 0 Primary Care Provider: Piotr Woodward Referrals: Piotr Woodward MD [Primary Care Provider] - As soon as possible (Please discuss a nebulizer and return to your daily asthma treatment) Disposition Disposition: Home, Self Care
[2021-11-08] MEDS: Albuterol 2.5 MG/3 ML VIAL.NEB. INHALATION (07:54)
[2021-11-08] MEDS: Ipratropium/Albuterol Sulfate 3 ML AMPUL.NEB INHALATION (07:54)
[2021-11-08 07:57] VITALS: PULSE 91; RESP 15
[2021-11-08] MEDS: predniSONE 20 MG Tablet 60 MG PO (08:03)
== END 2021-11-08 09:18 | disposition home or self-care (01) ==
PROVIDERS: Emergency Provider Emergency Medicine; PCP Internal Medicine
DX: J45.901 Unspecified asthma with (acute) exacerbation (principal); Z79.52 Long term (current) use of systemic steroids; Z79.899 Other long term (current) drug therapy; F17.210 Nicotine dependence, cigarettes, uncomplicated
CPT/HCPCS: 94640; 99283

== ENCOUNTER 2022-08-27 11:35 | Emergency (ER) | payer MEDICAID, SELFPAY ==
[2022-08-27 11:36] VITALS: BP 147/101; PULSE 83; RESP 16; TEMP 36.4; O2SAT 96; BMI 56.2
--- NOTE | 2022-08-27 11:47 | ED.VIS.DENTA ---
HPI <GLO Jones - Last Filed: 08/27/22 11:52> History of Present Illness Chief Complaint: Dental Narrative Narrative: 32-year-old female presents with pain in her left lower premolar. Its bothered her for a while but been worse over the last week. Her dentist prescribed clindamycin which she has only taken 2 doses of so far. They plan to do a root canal in 2 days. She is here with increased pain in that area. Denies fever chills or difficulty swallowing or breathing. PFSH <GLO Jones - Last Filed: 08/27/22 11:52> PFSH Medical History Asthma Home Medications albuterol sulfate 90 mcg/actuation aerosol inhaler (Ventolin HFA) 1 - 2 puff inhalation Q4H PRN PRN Wheezing ##1 03/28/17 [Rx Last Taken Unknown] prednisone 20 mg tablet 60 mg PO DAILY #15 tabs 10/20/19 [Rx Last Taken Unknown] albuterol sulfate 90 mcg/actuation aerosol inhaler (Ventolin HFA) 2 puff inhalation Q4H PRN PRN Wheezing ##1 11/08/21 [Rx Last Taken Unknown] prednisone 20 mg tablet 60 mg PO DAILY #12 TABLETS 11/08/21 [Rx Last Taken Unknown] ibuprofen 800 mg tablet 800 mg PO Q8H 7 days #21 tabs 08/27/22 [Rx Last Taken Unknown] oxycodone-acetaminophen 5 mg-325 mg tablet (Percocet) 1 tab PO Q6H PRN pain 3 days #12 tabs 08/27/22 [Rx Last Taken Unknown] Allergy/AdvReac Type Severity Reaction Status Date / Time Penicillins Allergy Hives Verified 08/27/22 11:35 AVACADO AdvReac Vomiting Uncoded 08/27/22 11:35 GU[place]AMOLE AdvReac Vomiting Uncoded 08/27/22 11:35 Surgical History no surgical history Social History (Updated 11/08/21 @ 07:[address] Emeka King DO) Smoking Status: Current every day smoker tobacco type: cigarettes ROS <GLO Jones - Last Filed: 08/27/22 11:52> ROS ED ROS Narrative Constitutional: Negative for fever, chills, malaise. Eyes: Negative for visual change. ENT: Positive for dental pain. CVS: Negative for palpitations, chest pain, syncope. Respiratory: Negative for shortness of breath, cough. GI: Negative for abdominal pain, nausea, vomiting. : Negative for dysuria, hematuria or frequency. Neuro: Negative for headache, motor/sensory dysfunction. Skin: Negative for rash, abscess, or wound. Musc: Negative for joint pain, swelling, trauma. Heme: Negative for easy bruising, bleeding, lymphadenopathy. EXAM <GLO Jones - Last Filed: 08/27/22 11:52> Physical Exam Narrative Exam Narrative: CONST: Patient sitting in no acute distress. EYES: Normal inspection. ENT: Left lower premolar #20 is tender to palpation. No periapical abscess, sublingual space is soft. Airway patent with no trismus or tongue elevation. NECK: Normal inspection. No masses or lymphadenopathy, trachea midline. RESP: No respiratory distress, CTAB. CVS: Regular rate and rhythm, no murmur, no gallop. SKIN: Color normal, no rash, warm, dry, intact. EXTREMITIES: Normal appearance, no pedal edema. NEURO: Oriented x4. PSYCH: Normal affect. Const Vital Signs: 08/27/22 11:36 Temperature 97.6 F L Temperature Source Temporal Pulse Rate 83 Respiratory Rate 16 Blood Pressure 147/101 H Blood Pressure Mean 116 Pulse Ox 96 Oxygen Delivery Method Room Air <Dr. Duke Verduzco MD - Last Filed: 08/27/22 12:04> Physical Exam Const Vital Signs: 08/27/22 11:36 Temperature 97.6 F L Temperature Source Temporal Pulse Rate 83 Respiratory Rate 16 Blood Pressure 147/101 H Blood Pressure Mean 116 Pulse Ox 96 Oxygen Delivery Method Room Air MDM <GLO Jones - Last Filed: 08/27/22 11:52> [facility] Narrative Medical decision making narrative: Patient has dental pain. She has tenderness over left lower premolar #20. There is no associated abscess or signs of deep space infection. Airway is patent. She is handling oral secretions appropriately. She has no fever or systemic symptoms. She is already on clindamycin and has taken 2 doses. I prescribed [place] for better pain control and she will keep her scheduled dentist appointment. She was discharged in stable condition. <Dr. Duke Verduzco MD - Last Filed: 08/27/22 12:04> MDM MDM Narrative Medical decision making narrative: Patient has dental pain. She has tenderness over left lower premolar #20. There is no associated abscess or signs of deep space infection. Airway is patent. She is handling oral secretions appropriately. She has no fever or systemic symptoms. She is already on clindamycin and has taken 2 doses. I prescribed [place] for better pain control and she will keep her scheduled dentist appointment. She was discharged in stable condition. Seen and evaluated independently and in conjunction with physician certified physician assistant. Agree with notes above unless documented otherwise. On exam, no trismus, no objective signs of infection, just a painful carried tooth that she is going to see dentistry for in 2 days, will prescribe some analgesics. Discharge Plan Triage Chief Complaint: Dental ED Midlevel Provider: Isaura Schrader ED Provider: Duke Verduzco Dx/Rx/DC Orders Clinical Impression: Pain due to dental caries Instructions: ED Abscess Antibiotic Treatment Only Prescriptions: New ibuprofen 800 mg tablet 800 mg PO Q8H 7 Days Qty: 21 0RF oxycodone-acetaminophen [Percocet] 5-325 mg tablet 1 tab PO Q6H PRN (Reason: pain) 3 Days Qty: 12 0RF No Action albuterol sulfate [Ventolin HFA] 1 INHALER inhaler 1 - 2 puff inhalation Q4H PRN PRN (Reason: Wheezing) Qty: 1 0RF prednisone 20 MG tablet 60 mg PO DAILY Qty: 15 0RF Rx Instructions: With food prednisone 20 MG tablet 60 mg PO DAILY Qty: 12 0RF Rx Instructions: Begin 09 November 2021 albuterol sulfate [Ventolin HFA] 1 INHALER inhaler 2 puff inhalation Q4H PRN PRN (Reason: Wheezing) Qty: 1 0RF Rx Instructions: dispense with a spacer Primary Care Provider: Piotr Woodward Referrals: Piotr Woodward MD [Primary Care Provider] - Dentist,Your [STAFF PHYSICIAN] - Keep A[facility]a appointment Disposition Disposition: Home, Self Care Discharge Date/Time: 08/27/22 12:01
== END 2022-08-27 12:01 | disposition home or self-care (01) ==
LOC: ED 12:00
PROVIDERS: Emergency Provider Emergency Medicine; PCP Internal Medicine; Visit Provider Emergency Medicine
DX: K02.9 Dental caries, unspecified (principal); K08.89 Other specified disorders of teeth and supporting structures; F17.210 Nicotine dependence, cigarettes, uncomplicated
CPT/HCPCS: 99282

== ENCOUNTER 2022-12-05 22:43 | Emergency (ER) | payer MEDICAID, SELFPAY ==
[2022-12-05 22:44] VITALS: BP 188/142; PULSE 110; RESP 17; TEMP 36.9; O2SAT 97; BMI 77.3
[2022-12-05 22:50] VITALS: BP 131/95
--- NOTE | 2022-12-05 23:35 | EDS_ITS ---
HPI History of Present Illness Chief Complaint: Substance Abuse Narrative Narrative: Patient is a 32-year-old female with past medical history of morbid obesity who presents to the ER with unintentional overdose. Patient typically does THC Gummies in the evening. She states that she typically does 14 mg. She states this evening for some reason she took more than she normally does and took approximately 185 mg of the gummies. She denies any other ingestion. She states this was done out of a want to feel good and not a attempted suicide. Reportedly patient did this roughly 1 hour prior to arrival. After taking a large amount she began to feel anxious and nauseous and secondary to this EMS was called. [facility] Medical History Asthma Home Medications albuterol sulfate 90 mcg/actuation aerosol inhaler (Ventolin HFA) 1 - 2 puff inhalation Q4H PRN PRN Wheezing ##1 03/28/17 [Rx Last Taken Unknown] prednisone 20 mg tablet 60 mg PO DAILY #15 tabs 10/20/19 [Rx Last Taken Unknown] albuterol sulfate 90 mcg/actuation aerosol inhaler (Ventolin HFA) 2 puff inhalation Q4H PRN PRN Wheezing ##1 11/08/21 [Rx Last Taken Unknown] prednisone 20 mg tablet 60 mg PO DAILY #12 TABLETS 11/08/21 [Rx Last Taken Unknown] ibuprofen 800 mg tablet 800 mg PO Q8H 7 days #21 tabs 08/27/22 [Rx Last Taken Unknown] oxycodone-acetaminophen 5 mg-325 mg tablet (Percocet) 1 tab PO Q6H PRN pain 3 days #12 tabs 08/27/22 [Rx Last Taken Unknown] Allergy/AdvReac Type Severity Reaction Status Date / Time Penicillins Allergy Hives Verified 12/05/22 22:48 avocado AdvReac Other Verified 12/05/22 22:48 Surgical History no surgical history Social History (Updated 11/08/21 @ 07:[address] Emeka King DO) Smoking Status: Current every day smoker tobacco type: cigarettes ROS ROS ED Constitutional Constitutional ED: Denies chills or fever(s) Eyes Eyes: Denies change in vision ENT ENT ED: Denies sore throat Cardiovascular Cardiovascular: Reports racing heartbeat; Denies chest pain Respiratory/Chest Respiratory/Chest: Denies cough or dyspnea Gastrointestinal Gastrointestinal: Reports nausea and vomiting; Denies abdominal pain or diarrhea Genitourinary Genitourinary ED: Denies dysuria Musculoskeletal Musculoskeletal: Denies myalgias Integumentary Denies rash Neurologic Neurologic: Denies headache(s) Psychiatric Psychiatric: Reports anxiety; Denies suicidal ideation or suicidal thoughts Hematologic/Lymphatic Hematologic/Lymphatic: Denies easy bleeding or easy bruising EXAM Physical Exam Const Vital Signs: 12/05/22 22:44 12/05/22 22:50 12/06/22 01:19 Temperature 98.4 F Temperature Source Temporal Pulse Rate 110 H 86 Respiratory Rate 17 14 Blood Pressure 188/142 H 131/95 H 135/90 H Blood Pressure Mean 157 107 105 Pulse Ox 97 98 Oxygen Delivery Method Room Air Room Air 12/06/22 02:31 Temperature Temperature Source Pulse Rate 89 Respiratory Rate 17 Blood Pressure 132/88 H Blood Pressure Mean Pulse Ox 99 Oxygen Delivery Method Positive well nourished, well developed and obese General Appearance ED: well developed Nutritional Appearance: obese HEENT Reports moist mucous membranes Eyes EOMs intact bilaterally Eyes Narrative: Pupils are dilated and sluggish to respond consistent with THC use Neck supple Neck Narrative: No new rigidity or meningeal signs noted Resp normal respiratory effort and clear to auscultation bilaterally Cardio regular rhythm Rate: tachycardic and other Other Details: Tachycardic rate with regular rhythm GI normal to inspection, nondistended, normoactive bowel sounds, non-tender, non- distended and no masses GI Narrative: No voluntary guarding or rigidity no pulsatile mass or fluid wave Auscultation: normoactive bowel sounds Palpation: soft Extremity normal to inspection Neuro oriented x3 and CN's II-XII intact bilaterally Sensorium / Orientation: alert Psych Psych Narrative: Patient has a tearful/nervous/anxious affect without homicidal or suicidal ideation Skin no rashes or lesions noted MDM MDM MDM Narrative Medical decision making narrative: OnPatient presented to the ER hypertensive and tachycardic with emotional lability and nausea which are all symptoms consistent with THC overdose. At this time even though the vitals are elevated they are not hemodynamically unstable. She also reports this was an accidental overdose and not deliberate so there is no need for psychiatric work-up or crisis center evaluation. The patient was given 2 L of fluid Zofran and Ativan and washed in the ER for multiple hours. On reevaluation she had improvement of her vital signs and resolution of her symptoms. At this time she also reiterates that this was not a suicide attempt and therefore as symptoms have improved with treatment and she is not homicidal or suicidal there is no need for further evaluation in the ER and patient is otherwise safe for discharge Discharge Plan Triage Chief Complaint: Substance Abuse ED Provider: Mert Weldon Dx/Rx/DC Orders Clinical Impression: Tetrahydrocannabinol (THC) use disorder, mild, abuse, Accidental overdose Instructions: ED Marijuana Abuse Prescriptions: No Action albuterol sulfate [Ventolin HFA] 1 INHALER inhaler 1 - 2 puff inhalation Q4H PRN PRN (Reason: Wheezing) Qty: 1 0RF prednisone 20 MG tablet 60 mg PO DAILY Qty: 15 0RF Rx Instructions: With food prednisone 20 MG tablet 60 mg PO DAILY Qty: 12 0RF Rx Instructions: Begin 09 November 2021 albuterol sulfate [Ventolin HFA] 1 INHALER inhaler 2 puff inhalation Q4H PRN PRN (Reason: Wheezing) Qty: 1 0RF Rx Instructions: dispense with a spacer ibuprofen 800 mg tablet 800 mg PO Q8H 7 Days Qty: 21 0RF oxycodone-acetaminophen [Percocet] 5-325 mg tablet 1 tab PO Q6H PRN (Reason: pain) 3 Days Qty: 12 0RF Primary Care Provider: Piotr Woodward Referrals: Piotr Woodward MD [Primary Care Provider] - Disposition Disposition: Home, Self Care Discharge Date/Time: 12/06/22 02:36
[2022-12-05] MEDS: Ondansetron 4 MG/2 ML Vial IV (23:47)
[2022-12-05] MEDS: LORazepam 2 MG/ML Syringe 1 MG IV (23:47)
[2022-12-05] MEDS: 0.9% Normal Saline 1,000 ML 999 ML IV (23:47)
[2022-12-06] MEDS: 0.9% Normal Saline 1,000 ML 999 ML IV (00:49)
[2022-12-06 01:19] VITALS: BP 135/90; PULSE 86; RESP 14; O2SAT 98
[2022-12-06 02:31] VITALS: BP 132/88; PULSE 89; RESP 17; O2SAT 99
== END 2022-12-06 02:36 | disposition home or self-care (01) ==
PROVIDERS: Emergency Provider Emergency Medicine; PCP Internal Medicine; Visit Provider Emergency Medicine
DX: R11.0 Nausea (principal); E66.01 Morbid (severe) obesity due to excess calories; T40.711A Poisoning by cannabis, accidental (unintentional), initial encounter; F17.210 Nicotine dependence, cigarettes, uncomplicated; F12.90 Cannabis use, unspecified, uncomplicated
CPT/HCPCS: 96374; 96375; 99285; J7030; A4216; J2405

== ENCOUNTER 2023-07-30 09:17 | Emergency (ER) | payer MEDICAID, SELFPAY ==
[2023-07-30 09:17] VITALS: BP 124/93; PULSE 96; RESP 16; TEMP 36.2; O2SAT 99; BMI 55.9
--- NOTE | 2023-07-30 09:29 | CT_ITS ---
STUDY: CTA HEAD AND NECK WITH CONTRAST REASON FOR EXAM: Female, 32 years old. Headache. History of cervical pain and dizziness. RADIATION DOSAGE (If Supplied By Facility): CTDIvol = ( 27.64 ) mGy, DLP = ( 1505.64 ) mGycm TECHNIQUE: CT angiography was performed with a multi-detector CT scanner. Data acquisition was obtained from the skull base through the vertex following intravenous administration of IV 100mL [id number]-[id number]. MIP images were reconstructed from the axial data set. Post-processing of the angiographic images was performed, with multiplanar reformation and 3D reconstruction. Individualized dose optimization techniques were used for this CT. COMPARISON: Comparison is made with prior CT scan of the brain dated March 12, 2015. FINDINGS: Normal bilateral petrous carotid arteries. Normal right cavernous carotid artery with a normal supraclinoid bifurcation. Normal left cavernous carotid artery with a normal supraclinoid bifurcation. Normal right A1 segments of the anterior cerebral artery. Normal left A1 segments of the anterior cerebral artery. Normal intact anterior communicating artery (ACOM). Normal bilateral A2 segments of the anterior cerebral arteries. Normal right M1 and M2 segments of the middle cerebral arteries, with a normal M1 bifurcation. Normal left M1 and M2 segments of the middle cerebral arteries, with a normal M1 bifurcation. Normal right posterior communicating artery (PCOM). Normal left posterior communicating artery (PCOM). Normal bilateral vertebral arteries. Normal basilar artery with a normal basilar bifurcation. The visualized bilateral superior cerebellar (SCA) arteries are normal. Normal bilateral P1, P2 and visualized P3 segments of the posterior cerebral arteries. There is no demonstrated aneurysm of the [place]. There is no demonstrated abnormality of the visualized brain. AORTIC ARCH: Normal visualized aortic arch. Normal origins of the brachiocephalic, left common carotid, and left subclavian arteries. RIGHT CAROTID ARTERIES: Normal right common carotid artery (CCA). Normal right common carotid bulb. Normal origin of the right internal carotid (ICA) artery without a hemodynamically significant stenosis. Normal visualized cervical portion of the right internal carotid artery. Normal origin of the right external carotid artery (ECA). LEFT CAROTID ARTERIES: Normal left common carotid artery (CCA). Normal left common carotid bulb. Normal origin of the left internal carotid (ICA) artery without a hemodynamically significant stenosis. Normal visualized cervical portion of the left internal carotid artery. Normal origin of the left external carotid artery (ECA). VERTEBRAL ARTERIES: Normal bilateral vertebral arteries. CT/CTA Head AND Neck W/ Contrast IMPRESSION: Normal CTA Head and neck with contrast. Electronically Signed: Winston Reyna MD at 10:28 EDT ,
--- NOTE | 2023-07-30 09:31 | EX.ED.VIS.HA ---
HPI History of Present Illness Chief Complaint: Headache Detail of Chief Complaint: Headache Informant: patient Narrative Narrative: Patient presents to the emergency room with complaint of headache x2 weeks. Patient normally does not have headaches like this. She would sometimes get headaches before her period started but then quickly resolved. No history of migraines. Initially ibuprofen and Tylenol would help the headache but now not helping. She is having hard time sleeping at night. She describes a pressure to the top of her head. She feels like there is air rushing into her ears and hears her heartbeat in her ears. She denies photophobia or nausea or vomiting. She denies any falls or head injuries. Patient states that she has a cousin that had a brain tumor that needed resected. Patient denies recent illness. Currently she rates her headache a 10 out of 10. Patient went to urgent care and was advised to be seen in the emergency department. Patient denies any double vision or blurred vision. Yesterday she had an episode where she had loss of vision for about 5 seconds with eyes open. [facility] Medical History Asthma Home Medications albuterol sulfate 90 mcg/actuation aerosol inhaler (Ventolin HFA) 1 - 2 puff inhalation Q4H PRN PRN Wheezing ##1 03/28/17 [Rx Last Taken Unknown] prednisone 20 mg tablet 60 mg (3 x 20 mg) PO DAILY #15 tabs 10/20/19 [Rx Last Taken Unknown] albuterol sulfate 90 mcg/actuation aerosol inhaler (Ventolin HFA) 2 puff inhalation Q4H PRN PRN Wheezing ##1 11/08/21 [Rx Last Taken Unknown] prednisone 20 mg tablet 60 mg (3 x 20 mg) PO DAILY #12 TABLETS 11/08/21 [Rx Last Taken Unknown] ibuprofen 800 mg tablet 800 mg PO Q8H 7 days #21 tabs 08/27/22 [Rx Last Taken Unknown] oxycodone-acetaminophen 5 mg-325 mg tablet (Percocet) 1 tab PO Q6H PRN pain 3 days #12 tabs 08/27/22 [Rx Last Taken Unknown] Allergy/AdvReac Type Severity Reaction Status Date / Time Penicillins Allergy Hives Verified 07/30/23 09:17 avocado AdvReac Other Verified 07/30/23 09:17 Surgical History no surgical history Social History (Updated 11/08/21 @ 07:[address] Emeka King, DO) Smoking Status: Current every day smoker tobacco type: e-cigarettes ROS ROS ED Review of Systems ROS Unobtainable: other Constitutional Constitutional ED: Reports lethargy; Denies chills, fever(s), sweats or weight loss Eyes Eyes: Denies blurry vision, change in vision or diplopia ENT ENT ED: Denies rhinorrhea or sore throat Cardiovascular Cardiovascular: Denies chest pain, orthopnea or racing heartbeat Respiratory/Chest Respiratory/Chest: Denies cough, dyspnea, dyspnea on exertion, orthopnea or sputum Gastrointestinal Gastrointestinal: Denies abdominal pain, diarrhea, nausea or vomiting Genitourinary Genitourinary ED: Denies dysuria, hematuria or urinary frequency Musculoskeletal Musculoskeletal: Denies arthralgias, back pain, myalgias or neck pain Integumentary Denies abscess, Abrasions or rash Neurologic Neurologic: Reports headache(s); Denies weakness Psychiatric Psychiatric: Denies anxiety, depression or suicidal thoughts Endocrine Endocrinology: Denies polydipsia, polyphagia or polyuria Hematologic/Lymphatic Hematologic/Lymphatic: Denies easy bleeding, easy bruising or lymphadenopathy Allergic/Immunologic Allergic/Immunologic ED: Denies mouth swelling, tongue swelling or urticaria EXAM Physical Exam Const Vital Signs: 07/30/23 09:17 Temperature 97.2 F L Temperature Source Temporal Pulse Rate 96 Respiratory Rate 16 Blood Pressure 124/93 H Blood Pressure Mean 103 Pulse Ox 99 Oxygen Delivery Method Room Air Positive well nourished and well developed General Appearance ED: well developed and NAD HEENT Reports TM's clear and moist mucous membranes normocephalic and atraumatic; Negative for trauma or tenderness Tympanic Membrane ED: Yes TM's clear Eyes PERRL and EOMs intact bilaterally General Eye ED: Negative for pale conjunctiva or scleral icterus Neck no lymphadenopathy, supple and no JVD General: Negative for tenderness Chest Wall inspection of chest normal and palpation of chest normal Chest: Negative for tenderness Resp normal respiratory effort and clear to auscultation bilaterally Effort and Inspection: Negative for respiratory distress or pain with movement Auscultation: Negative for rhonchi, wheezes or diminished lung sounds Cardio regular rate, regular rhythm, S1 normal heart sound, S2 normal heart sound and no murmurs Peripheral Pulses: pulses 2+ throughout GI normal to inspection, nondistended, normoactive bowel sounds, soft to palpation, non-tender, non-distended and no masses Back/Spine no CVA tenderness and no thoracic nor lumbar tenderness Extremity normal to inspection General Extremety ED: Negative for edema General Extremity: Negative for edema Neuro oriented x3, CN's II-XII intact bilaterally, no sensory deficits noted and gait normal Sensorium / Orientation: awake, alert, oriented to person, oriented to place and oriented to time Motor Exam: strength 5/5 throughout and strength abnormal Psych mental status grossly normal Skin no rashes or lesions noted and no wounds MDM MDM MDM Narrative Medical decision making narrative: Maria with a headache that is different than usual. Typically does not have migraines per se. This is the worst headache she has had and is lasted for 2 weeks. There is a family history of brain tumor in her cousin. I did obtain CTA of head and neck which was normal. Patient was medicated with Reglan, Benadryl, and Toradol and ordered a liter of fluid. Patient's headache resolved but she did feel very anxious after being medicated which I suspect is likely reaction to the Reglan. Patient would like to go home. I feel she be safely discharged to home. She will be referred to Dr. Soliz for follow-up. I suspect this may be atypical type migraine. Lab Data Attestation: I reviewed the patient's lab results. Labs: Laboratory Results - last 24 hr 07/30/23 09:35 WBC 8.3 RBC 4.03 L Hgb 10.2 L Hct 33.7 L MCV 83.6 MCH 25.3 L MCHC 30.3 L RDW Std Deviation 44.3 H RDW Coeff of Ha 14.6 Plt Count 334 MPV 10.1 Immature Gran % (Auto) 0.400 Neut % (Auto) 65.1 Lymph % (Auto) 24.3 [place] % (Auto) 6.9 Eos % (Auto) 2.9 Baso % (Auto) 0.4 Absolute Neuts (auto) 5.4 Absolute Lymphs (auto) 2.01 Nucleated RBC % 0 ESR 25 Sodium 139 Potassium 4.3 Chloride 105 Carbon Dioxide 27.0 Anion Gap 7 BUN 14 Creatinine 0.92 Estim Creat Clear Calc 65.63 Est GFR (MDRD) Af Amer 90 Est GFR (MDRD) Non-Af 74 BUN/Creatinine Ratio 15.2 Glucose 108 H Calcium 8.8 Serum , Qual NEGATIVE Radiography Diagnostic Testing: Clinical Impression(s) from Imaging Studies Head/Neck CTA 07/30/23 09:29 IMPRESSION: Normal CTA Head and neck with contrast. Electronically Signed: Winston Reyna MD at 10:28 EDT , Discharge Plan Triage Chief Complaint: Headache ED Provider: Austin Landry Dx/Rx/DC Orders Clinical Impression: Headache Instructions: ED Headache Unspecified Prescriptions: No Action albuterol sulfate [Ventolin HFA] 1 INHALER inhaler 1 - 2 puff inhalation Q4H PRN PRN (Reason: Wheezing) Qty: 1 0RF prednisone 20 MG tablet 60 mg PO DAILY Qty: 15 0RF Rx Instructions: With food prednisone 20 MG tablet 60 mg PO DAILY Qty: 12 0RF Rx Instructions: Begin 09 November 2021 albuterol sulfate [Ventolin HFA] 1 INHALER inhaler 2 puff inhalation Q4H PRN PRN (Reason: Wheezing) Qty: 1 0RF Rx Instructions: dispense with a spacer ibuprofen 800 mg tablet 800 mg PO Q8H 7 Days Qty: 21 0RF oxycodone-acetaminophen [Percocet] 5-325 mg tablet 1 tab PO Q6H PRN (Reason: pain) 3 Days Qty: 12 0RF Primary Care Provider: Piotr Woodward Referrals: Avi Quiñones MD [Non-Staff -Ordering Privileges] - 3-5 Days Piotr Woodward MD [Primary Care Provider] - Disposition Disposition: Home, Self Care Discharge Date/Time: 07/30/23 11:34
[2023-07-30 09:51] LABS: Absolute Lymphocyte Count 2.01 X10^3/uL (0.83-4.51); Absolute Neutrophil Count 5.4 X10^3/uL (2.0-7.7); Basophil# 0.03 X10^3/uL; Basophil% 0.4 % (0-1); Eosinophil# 0.24 X10^3/uL; Eosinophils% 2.9 % (0-5); Erythrocyte Sedimentation Rate 25 mm/hr (0-30); Hematocrit 33.7 % (37-47); Hemoglobin 10.2 g/dL (12.0-15.0); Lymphocyte # 2.01 X10^3/ul (0.83-4.51); Lymphocyte % 24.3 % (19-41); Mean Corp Hgb Conc 30.3 g/dL (32-36); Mean Corpuscular Hgb 25.3 pg (27.0-32.0); Mean Corpuscular Volume 83.6 fL (81-99); Mean Platelet Vol. 10.1 fl (6.2-12.0); Monocyte# 0.57 X10^3/uL; Monocyte% 6.9 % (0-10); NRBC Flagged by Analyzer 0 % (0-5); Neutrophil # 5.39 X10^3/uL (2.7-7.7); Neutrophil % 65.1 % (47-70); Platelet Count 334 K/mm3 (150-450); RBC Distribution Width CV 14.6 % (11.6-14.6); RBC Distribution Width SD 44.3 fl (35.1-43.9); Red Blood Count 4.03 M/mm3 (4.2-5.4); White Blood Count 8.3 K/mm3 (4.4-11.0)
[2023-07-30 09:56] LABS: Internal QC Validated? YES +Cl - CLEAR BKGD; Pregnancy, Serum, hCG Quali. NEGATIVE Negative
[2023-07-30 10:03] LABS: Anion Gap 7 (5-15); BUN 14 mg/dL (7-18); BUN/Creat Ratio 15.2 RATIO (10-20); Calcium,Total 8.8 mg/dL (8.5-10.1); Chloride 105 mmol/L (98-107); Creatinine, Serum 0.92 mg/dL (0.55-1.02); EST Glomerular Filtration Rate 74 mL/min (>60); Est Glom Filt Rate - Afr Amer 90 mL/min (>60); Estimated Creatinine Clearance 65.63 ml/min; Glucose 108 mg/dL (74-106); Potassium 4.3 mmol/L (3.5-5.1); Sodium Level 139 mmol/L (136-145)
[2023-07-30] MEDS: DiphenhydrAMINE 50 MG/ML Syringe IV (10:46)
[2023-07-30] MEDS: Ketorolac 30 MG/ML Syringe IV (10:46)
[2023-07-30] MEDS: Metoclopramide 10 MG/2 ML Vial IV (10:46)
[2023-07-30] MEDS: 0.9% Normal Saline (1000mL) 1,000 ML 999 ML IV (10:46)
== END 2023-07-30 11:34 | disposition home or self-care (01) ==
PROVIDERS: Emergency Provider Emergency Medicine; PCP Internal Medicine; Visit Provider Emergency Medicine
DX: R51.9 Headache, unspecified (principal); F17.290 Nicotine dependence, other tobacco product, uncomplicated
CPT/HCPCS: 70496; 70498; 80048; 84703; 85025; 85652; 96374; 96375; 99283; J7030; Q9967; A4216

== ENCOUNTER → 2024-10-01 | Outpatient (CLI) | payer MEDICAID, SELFPAY ==
[2024-10-01 12:41] LABS: Absolute Neutrophil Count 3.3 X10^3/uL (2.0-7.7); Basophil# 0.07 X10^3/uL; Basophil% 1.1 % (0-1); Hematocrit 35.3 % (37-47); Hemoglobin 9.9 g/dL (12.0-15.0); Lymphocyte % 34.7 % (19-41); Mean Corpuscular Hgb 21.8 pg (27.0-32.0); Mean Corpuscular Volume 77.6 fL (81-99); Monocyte# 0.55 X10^3/uL; Monocyte% 8.3 % (0-10); NRBC Flagged by Analyzer 0 % (0-5); Neutrophil # 3.29 X10^3/uL (2.7-7.7); Neutrophil % 49.7 % (47-70); Platelet Count 411 K/mm3 (150-450); RBC Distribution Width CV 19.2 % (11.6-14.6); RBC Distribution Width SD 53.1 fl (35.1-43.9); Red Blood Count 4.55 M/mm3 (4.2-5.4); White Blood Count 6.6 K/mm3 (4.4-11.0)
[2024-10-01 13:10] LABS: Hemoglobin A1c 5.6 % (3.8-5.6)
[2024-10-01 13:16] LABS: ALB/GLOB Ratio 0.9 RATIO (0.9-2.4); AST(SGOT) 18 U/L (15-37); Alanine Aminotransfer ALT/SGPT 24 U/L (13-56); Albumin, Serum 3.5 g/dL (3.2-5.0); Alkaline Phosphatase 104 U/L (45-117); Anion Gap 5 (5-15); BUN 11 mg/dL (7-18); BUN/Creat Ratio 11.3 RATIO (10-20); Calcium,Total 8.7 mg/dL (8.5-10.1); Chloride 109 mmol/L (98-107); Creatinine, Serum 0.98 mg/dL (0.55-1.02); EST Glomerular Filtration Rate 69 mL/min (>60); Est Glom Filt Rate - Afr Amer 84 mL/min (>60); Globulin 3.9 g/dL (2.2-4.2); Glucose 101 mg/dL (74-106); Potassium 3.6 mmol/L (3.5-5.1); Protein, Total 7.4 g/dL (6.4-8.2); Sodium Level 139 mmol/L (136-145)
== END | disposition home or self-care (01) ==
LOC: BIMLAB 12:02
PROVIDERS: PCP Physician Assistant; Referring Provider Physician Assistant; Visit Provider Physician Assistant
DX: G93.2 Benign intracranial hypertension (principal); R73.09 Other abnormal glucose
CPT/HCPCS: 36415; 80053; 83036; 84443; 85025

== ENCOUNTER 2024-10-04 22:45 | Emergency (ER) | payer MEDICAID, SELFPAY ==
[2024-10-04 22:47] VITALS: BP 127/90; PULSE 92; RESP 18; TEMP 36.9; O2SAT 96; BMI 55.0
--- NOTE | 2024-10-04 23:20 | EDS_ITS ---
HPI History of Present Illness Chief Complaint: Cold Sx Detail of Chief Complaint: Upper respiratory symptoms that started 3 to 4 days prior to arrival and si Informant: patient Onset/Context/Timing Onset: Days (4 days) Context: Sudden Onset Timing: Continuous Quality: Upper respiratory tract infectious symptoms with sinus pain Location: Upper respiratory Current Severity: Mild Maximum Severity: Moderate Worsened by: Nothing Relieved by: Nothing Associated Symptoms Associated Symptoms: No constitutional symptoms. Narrative Narrative: Patient is a 34-year-old female. She does vape. She denies fever or chills. She does endorse some congestion. She does have a cough. The cough is nonproductive. Denies ear pain. She denies throat pain. She had no change in voice. Her cough is nonproductive. She denies chest pain. She denies history of VTE. She denies leg pain, swelling discoloration. She denies GI symptoms. Prior similar symptoms: Yes Recent Illness/Hospitalization: No PFSH PFSH Medical History Anxiety and depression GERD (gastroesophageal reflux disease) Infertility associated with anovulation Mild intermittent asthma without complication Vision loss, bilateral Idiopathic intracranial hypertension Asthma Home Medications ?Medication ?Instructions ?Recorded ?Last Taken ?Type albuterol sulfate 90 mcg/actuation 1 - 2 puff inhalation Q4H PRN PRN 03/28/17 Unknown Rx aerosol inhaler (Ventolin HFA) Wheezing ##1 albuterol sulfate 90 mcg/actuation 2 puff inhalation Q4H PRN PRN 11/08/21 Unknown Rx aerosol inhaler (Ventolin HFA) Wheezing ##1 ibuprofen 800 mg tablet 800 mg PO Q8H 7 days #21 tabs 08/27/22 Unknown Rx acetazolamide 500 mg 500 mg PO BID 09/17/24 Unknown History capsule,extended release semaglutide 0.25 mg or 0.5 mg (2 0.25 mg (0.368 mL) subcut QWEEK #3 10/01/24 Unknown Rx mg/3 mL) subcutaneous pen injector mL (Ozempic) Allergy/AdvReac Type Severity Reaction Status Date / Time Penicillins Allergy Hives Verified 10/04/24 22:46 avocado AdvReac Other Verified 10/04/24 22:46 Family History Mother CHF (congestive heart failure) Heart disease Widowmaker heart attack X2 Social History household members: family and children housing: house number of children: 1 current occupational status: employed current occupation: direct care provider Smoking Status: Former smoker alcohol intake: never substance use type: does not use caffeine: Yes Type: coffee eating out: 1-3 times/week seatbelt use: always do you feel safe at home: Yes ROS ROS ED Constitutional Constitutional ED: Denies chills, fever(s), subjective or sweats Eyes Eyes: Denies blurry vision or change in vision ENT ENT ED: Reports rhinorrhea; Denies ear pain Cardiovascular Cardiovascular: Denies chest pain, orthopnea, palpitations or paroxysmal nocturnal dyspnea Respiratory/Chest Respiratory/Chest: Reports cough; Denies dyspnea, dyspnea on exertion, orthopnea, paroxysmal nocturnal dyspnea or sputum Gastrointestinal Gastrointestinal: Denies abdominal pain, nausea or vomiting Musculoskeletal Musculoskeletal: Reports neck pain and other Details: Complains of stiffness as well ; Denies arthralgias or myalgias Integumentary Denies rash Neurologic Neurologic: Denies headache(s) EXAM Physical Exam Const Vital Signs: 10/04/24 22:47 10/04/24 22:54 Temperature 98.4 F Temperature Source Oral Pulse Rate 92 Respiratory Rate 18 Respiratory Effort Normal Blood Pressure 127/90 H Blood Pressure Mean 102 Pulse Ox 96 Oxygen Delivery Method Room Air Room Air Positive well nourished and well developed Constitutional Narrative: BMI is greater than 50 General Appearance ED: well developed; Negative for cyanotic, diaphoretic or pallor HEENT Denies moist mucous membranes HEENT Narrative: Ears are normal. Nares patent. Posterior pharynx is normal. TMs are normal. There is no tenderness over the frontal or maxillary sinuses. Eyes PERRL and EOMs intact bilaterally Neck no lymphadenopathy, supple and no JVD Neck Narrative: Patient has full flexion extension without any meningeal findings. Resp normal respiratory effort and clear to auscultation bilaterally Cardio regular rate, regular rhythm, S1 normal heart sound, S2 normal heart sound and no murmurs Extremity normal to inspection Extremity Narrative: There is no clubbing or cyanosis noted. Neuro oriented x3 and CN's II-XII intact bilaterally Sensorium / Orientation: alert Psych mental status grossly normal Skin no rashes or lesions noted, no wounds and skin turgor normal General Skin Exam: Negative for jaundice or pallor MDM MDM MDM Narrative Medical decision making narrative: Patient's findings are consistent with an upper respiratory tract infection. Her pain may be due to sinus pressure. She was informed of the only 4 days of symptoms she does not have a sinus infection. Treatment is symptomatic. She is told she may have a cough for another 2+ weeks and be ill for another 7 to 10 days. Since she has essentially normal vitals there is no indication for laboratory testing or imaging specially with a normal exam and vital signs. History & Record Review Additional record(s) reviewed:: Prior ED visit (ER visit 07/30/2023 for headache. November 2022 for accidental overdose. October 2021 for exacerbation of asthma) Discharge Plan Triage Chief Complaint: Cold Sx ED Provider: Will Li Dx/Rx/DC Orders Clinical Impression: Acute upper respiratory infection, Sinus pressure, Body mass index (BMI) greater than 50 Instructions: ED URI, Viral, No Abx (Adult) Prescriptions: No Action acetazolamide 500 mg capsule, extended release 500 mg PO BID Ozempic 0.25 mg or 0.5 mg (2 mg/3 mL) pen injector 0.25 mg subcut QWEEK Qty: 3 0RF Rx Instructions: for 4 weeks albuterol sulfate [Ventolin HFA] 1 INHALER inhaler 1 - 2 puff inhalation Q4H PRN PRN (Reason: Wheezing) Qty: 1 0RF albuterol sulfate [Ventolin HFA] 1 INHALER inhaler 2 puff inhalation Q4H PRN PRN (Reason: Wheezing) Qty: 1 0RF Rx Instructions: dispense with a spacer ibuprofen 800 mg tablet 800 mg PO Q8H 7 Days Qty: 21 0RF Primary Care Provider: Joe Morales Referrals: Joe Morales PA [Primary Care Provider] - 10-14 Days if not better Print Language: [place] Disposition Disposition: Home, Self Care
== END 2024-10-04 23:33 | disposition home or self-care (01) ==
PROVIDERS: Emergency Provider Emergency Medicine; PCP Physician Assistant; Visit Provider Emergency Medicine
DX: J06.9 Acute upper respiratory infection, unspecified (principal); J45.20 Mild intermittent asthma, uncomplicated; Z88.0 Allergy status to penicillin; Z87.891 Personal history of nicotine dependence
CPT/HCPCS: 99283

== ENCOUNTER → 2024-11-19 | Outpatient (CLI) | payer MEDICAID, SELFPAY | END | disposition home or self-care (01) | LOC: SL 20:00 | PROVIDERS: PCP Physician Assistant; Visit Provider Internal Medicine | DX: G47.10 Hypersomnia, unspecified (principal) | CPT/HCPCS: 95810 ==

== ENCOUNTER 2025-11-02 09:43 | Emergency (ER) | payer MEDICAID, SELFPAY ==
[2025-11-02 09:44] VITALS: BP 130/98; PULSE 93; RESP 20; TEMP 36.2; O2SAT 99; BMI 54.1
--- NOTE | 2025-11-02 09:55 | CT_ITS ---
PROCEDURE: BRAIN/HEAD WITHOUT CONTRAST 11/02/2025 REASON FOR EXAM: HX IIH, HEADACHE X1 MO TECHNIQUE: Procedure Code: CTBR Modality: CT Procedure: BRAIN/HEAD WITHOUT CONTRAST Coronal and Sagittal reconstruction series were provided. One or more dose reduction techniques were used (e.g., Automated exposure control, adjustment of the mA and/or kV according to patient size, use of iterative reconstruction technique. RADIATION DOSE SUMMARY: DLP: 745.49 mGycm COMPARISON: None available. FINDINGS: No acute hemorrhage. No acute infarct. No significant mass effect or brain herniation. Partially empty sella. The ventricular system and sulci/fissures are within normal limits of size and configuration for the patient's stated age. No extra-axial fluid collection. The basal cisterns are patent. The mastoid air cells are clear. The paranasal sinuses are predominantly clear. The calvarium appears intact. CT/Brain/Head without Contrast IMPRESSION: No CT evidence of acute intracranial hemorrhage, infarct, significant mass effe ct. Partially empty sella. This is nonspecific finding but may sometimes be seen i n the setting of increased intracranial hypertension. Reading Location: [id number]
--- NOTE | 2025-11-02 09:56 | EDS_ITS ---
HPI History of Present Illness Chief Complaint: Headache Narrative Narrative: Patient is a 35-year-old female presenting to the emergency department for headache x 1 month. Patient has a past medical history of idiopathic intracranial hypertension, JOSE R, morbid obesity. Patient states that about 2 to 3 years ago she was diagnosed with IIH after she lost her vision in both eyes. She was started on acetazolamide and regained her vision other than some peripheral left sided deficits that come and go. She states that she sees her neurologist at [place] for her IIH. She states that she has never had an LP for diagnosis or treatment of her symptoms. States over the past month she has had on and off headaches on the left side of her head. She states these are consistent with a headache she had with her IIH in the past. Her acetazolamide dosage has increased subsequently and she is now taking 1000 mg twice a day. She called her neurologist and he recommended that she come here for evaluation. She denies any fever or chills. Denies any nausea or vomiting. Denies any visual changes from her baseline, numbness or weakness in her extremities, neck pain or back pain. PFSH PFS Medical History JOSE R (obstructive sleep apnea) Hypersomnolence Anxiety and depression GERD (gastroesophageal reflux disease) Infertility associated with anovulation Mild intermittent asthma without complication Vision loss, bilateral Idiopathic intracranial hypertension Asthma Home Medications ?Medication ?Instructions ?Recorded ?Last Taken ?Type ibuprofen 800 mg tablet 800 mg PO Q8H 7 days #21 tab s 08/27/22 11/01/25 Rx acetaminophen 325 mg tablet 325 mg PO Q6H PRN fever or pain 11/02/25 11/01/25 History acetazolamide 500 mg 1,000 mg PO BID 11/02/25 History capsule,extended release omeprazole 20 mg capsule,delayed 20 mg PO QDAY PRN jeimy d 11/02/25 Unknown History release Allergy/AdvReac Type Severity Reaction Status Date / Time Penicillins Allergy Hives Verified 11/02/25 09:44 avocado AdvReac Other Verified 11/02/25 09:44 Family History Mother CHF (congestive heart failure) Heart disease Widowmaker heart attack X6 Social History household members: family and children housing: house number of children: 1 current occupational status: unemployed Smoking Status: Current every day smoker tobacco type: e-cigarettes alcohol intake: never substance use type: does not use caffeine: Yes Type: coffee eating out: 1-3 times/week seatbelt use: always do you feel safe at home: Yes ROS ROS ED ROS Narrative see HPI EXAM Physical Exam Narrative Exam Narrative: Vital signs: Reviewed General: Alert and orientedx3. No acute distress. Well-appearing, nontoxic. BMI 54.2 HEENT: Head is normocephalic and atraumatic, sinuses nontender, pupils 2 mm equal round and reactive. Nares are patent. Oropharynx and throat exams normal. Neck: Supple without lymphadenopathy nontender. Normal active range of motion of neck. No nuchal rigidity. Cardiovascular: Regular rate and rhythm, no murmurs. No rubs or gallops. Normal S1 and S2 Respiratory: Clear to auscultation bilaterally. No wheezes, rales, rhonchi Abdominal: Soft and nontender. Normal bowel sounds. No guarding or rebound. Nonsurgical abdomen Extremities: No tenderness. No bruising. Normal range of motion. Normal sensation. Skin: No rash or redness. Neurological: Cranial nerves II through XII are grossly intact. Normal strength and sensation. Normal cerebellar function The rest of the physical exam is unremarkable Const Vital Signs: 11/02/25 09:44 11/02/25 10:52 11/02/25 11:08 Temperature 97.1 F L Temperature Source Temporal Pulse Rate 93 75 71 Respiratory Rate 20 H 16 14 Blood Pressure 130/98 H 122/86 H 130/79 H Blood Pressure Mean 108 98 96 Pulse Ox 99 99 99 Oxygen Delivery Method Room Air Room Air Room Air 11/02/25 12:00 11/02/25 14:39 Temperature 98 F Temperature Source Pulse Rate 80 78 Respiratory Rate 16 16 Blood Pressure 130/78 H 128/80 H Blood Pressure Mean 95 96 Pulse Ox 99 99 Oxygen Delivery Method MDM MDM MDM Narrative Medical decision making narrative: Patient is a 35-year-old female presenting to the emergency department for headache x 1 month. Patient was seen and examined. Vitals are stable. Patient resting in bed comfortably in no acute distress. Patient has a history of IIH and her headaches are similar to the headache she has had with this in the past. This is the most likely cause of her headaches. She has no fever, altered mental status and is well-appearing and neurologically intact I do not think this is meningitis or encephalitis. She has had imaging of her brain in the past but she states this was many years ago, I do not think this is a new brain mass. No neuro deficits and headache for one month, less likely intracranial bleed. Will obtain CT brain imaging and basic labs. CT of the brain shows no acute intracranial hemorrhage, infarct or significant mass effect. There is partially empty sella which is a nonspecific finding but may sometimes be seen in the setting of IIH. Optic nerve sheath diameter was obtained bilaterally and show evidence of papilledema. ONSD of 7.6 mm on the r ight, 4.5 on the left. Did speak with MERCHANDISING CONSULTANT in IR, Tia who discussed with IR physician, Dr. Cardona, who will perform a LP. Patient sent to interventional radiology for this procedure. Patient was brought back to the emergency department and I was notified that the LP was unable to be completed due to patient's body habitus. Spoke with Dr. Salguero who states that he tried multiple times however each time he was hubbing the needle with no success. I went back to reevaluate the patient and discuss the next best plan with her. She states she would like to go home. I offered her transfer to another facility that could possibly attempt with a better imaging intensifier per Dr. Salguero. She does not want to do this and states that she has to figure out childcare for home. I explained to her that if her symptoms continue to worsen she could develop permanent vision changes/loss or significant morbidity or mortality from this. She understands and has capacity to make these decisions. She is alert and oriented x 3. She is able to repeat the possible risks back to me. She states that she is planning on calling her neurologist today and will try to schedule an outpatient LP at a different facility. AMA paperwork was signed. I instructed her to return at any time if she has new or worsening symptoms or would like to be reevaluated. Clinical impression: Headache History & Record Review Discussion w/independent historian: Patient Lab Data Attestation: I reviewed the patient's lab results. Labs: Laboratory Results - last 24 hr 11/02/25 10:18 WBC 6.9 RBC 4.20 Hgb 10.2 L Hct 32.5 L MCV 77.4 L MCH 24.3 L MCHC 31.4 L RDW Std Deviation 48.0 H RDW Coeff of Ha 17.6 H Plt Count 339 MPV 10.1 Immature Gran % (Auto) 0.300 Neut % (Auto) 57.8 Lymph % (Auto) 27.8 [place] % (Auto) 7.8 Eos % (Auto) 5.7 H Baso % (Auto) 0.6 Absolute Neuts (auto) 4.0 Absolute Lymphs (auto) 1.92 Nucleated RBC % 0 Sodium 137 Potassium 4.3 Chloride 106 Carbon Dioxide 20.8 L Anion Gap 10 BUN 9 Creatinine 0.82 Estim Creat Clear Calc 120.83 Est GFR (MDRD) Non-Af 95 BUN/Creatinine Ratio 11.4 Glucose 121 H Calcium 8.8 Radiography Diagnostic Testing: Clinical Impression(s) from Imaging Studies Brain CT 11/02/25 09:55 IMPRESSION: No CT evidence of acute intracranial hemorrhage, infarct, significant mass effect. Partially empty sella. This is nonspecific finding but may sometimes be seen in the setting of increased intracranial hypertension. Reading Location: [facility] Lumbar Puncture Fluoroscopy 11/02/25 12:30 IMPRESSION: Unsuccessful lumbar puncture in a patient with obese body habitus. Reading Location: [place] [id number] Discharge Plan Triage Chief Complaint: Headache ED Provider: Ann-Marie Bautista Dx/Rx/DC Orders Clinical Impression: Intracranial hypertension, Headache Instructions: Intracranial hypertension Prescriptions: No Action ibuprofen 800 mg tablet 800 mg PO Q8H 7 Days Qty: 21 0RF acetaminophen 325 mg tablet 325 mg PO Q6H PRN (Reason: fever or pain) acetazolamide 500 mg capsule, extended release 1,000 mg PO BID omeprazole 20 mg capsule,delayed release(DR/EC) 20 mg PO QDAY PRN (Reason: gerd) Primary Care Provider: Geo Mckinnon Referrals: Geo Mckinnon MD [Primary Care Provider, Internal Medicine] Activity Restrictions/Additional Instructions: You left AGAINST MEDICAL ADVICE. This could affect your vision possibly permanently. Please follow-up with your neurologist to soon as possible. Return immediately with any new or worsening symptoms. Print Language: [place] Disposition Disposition: Home, Self Care Discharge Date/Time: 11/02/25 14:39
[2025-11-02 10:28] LABS: Hematocrit 32.5 % (37-47); Hemoglobin 10.2 g/dL (12.0-15.0); Immature Granulocytes Count 0.020 X10^3/uL (0.0-0.0); Mean Corp Hgb Conc 31.4 g/dL (32-36); Mean Corpuscular Volume 77.4 fL (81-99); Mean Platelet Vol. 10.1 fl (6.2-12.0); NRBC Flagged by Analyzer 0 % (0-5); Platelet Count 339 K/mm3 (150-450); RBC Distribution Width CV 17.6 % (11.6-14.6); RBC Distribution Width SD 48.0 fl (35.1-43.9); Red Blood Count 4.20 M/mm3 (4.2-5.4); White Blood Count 6.9 K/mm3 (4.4-11.0)
[2025-11-02 10:52] VITALS: BP 122/86; PULSE 75; RESP 16; O2SAT 99
[2025-11-02 10:57] LABS: Anion Gap 10 (5-15); BUN 9 mg/dL (4-19); BUN/Creat Ratio 11.4 RATIO (10-20); Calcium,Total 8.8 mg/dL (7.6-11.0); Carbon Dioxide 20.8 mmol/L (21.0-32.0); Chloride 106 mmol/L (98-108); Estimated Creatinine Clearance 120.83 ml/min (50-250); Glucose 121 mg/dL (70-99); Potassium 4.3 mmol/L (3.3-5.1)
[2025-11-02 11:08] VITALS: BP 130/79; PULSE 71; RESP 14; O2SAT 99
[2025-11-02 12:00] VITALS: BP 130/78; PULSE 80; RESP 16; O2SAT 99
--- NOTE | 2025-11-02 12:30 | RAD_ITS ---
PROCEDURE: DX LUMBAR PUNCTURE W/IMG GUIDE 11/02/2025 REASON FOR EXAM: LP FOR IIH TECHNIQUE: Procedure Code: [id number] Modality: DX Procedure: DX LUMBAR PUNCTURE W/IMG GUIDE COMPARISON: No relevant prior. FINDINGS: Patient has an obese body habitus. The patient was position on the fluoroscopic table in a supine position, slightly oblique. Sterile preparation of the skin was performed in the usual fashion. After localization of the puncture site, local anesthesia was accomplished with lidocaine 2%. An extra long, 6-1/2 inch spinal needle, 25 g, was utilized to attempt spinal puncture. I could not reach the lumbar subarachnoid space with the spinal needle. Patient complained of pressure in her low back during the procedure and unfortunately refused to continue with the procedure. The procedure was terminated prematurely. RAD/Dx Lumbar Puncture w/IMG Guide IMPRESSION: Unsuccessful lumbar puncture in a patient with obese body habitus. Reading Location: [place] [id number]
[2025-11-02] MEDS: Lidocaine 2% (5ml sdv) 5 ML VIAL.MPF ×2 (12:48→13:04)
[2025-11-02 14:39] VITALS: BP 128/80; PULSE 78; RESP 16; TEMP 36.6; O2SAT 99
== END 2025-11-02 14:39 | disposition left against medical advice (07) ==
PROVIDERS: Emergency Provider Student in an Organized Health Care Education/Training Program; PCP Internal Medicine; Visit Provider Student in an Organized Health Care Education/Training Program
DX: G93.2 Benign intracranial hypertension (principal); E66.01 Morbid (severe) obesity due to excess calories; Z68.43 Body mass index [BMI] 50.0-59.9, adult; R51.9 Headache, unspecified; Z53.29 Procedure and treatment not carried out because of patient's decision for other reasons; K21.9 Gastro-esophageal reflux disease without esophagitis; G47.33 Obstructive sleep apnea (adult) (pediatric); Z79.899 Other long term (current) drug therapy; F17.290 Nicotine dependence, other tobacco product, uncomplicated
CPT/HCPCS: 62328; 70450; 80048; 85025; 99283